=== PATIENT | female | born 1985 | race Hispanic/Latino ===

== ENCOUNTER → 2023-01-20 | Outpatient (CLI) | payer BC, OTHER | END | disposition home or self-care (01) | LOC: SHCH 14:40 | PROVIDERS: ATTEND Internal Medicine Cardiovascular Disease | DX: R00.2 Palpitations (principal); R00.0 Tachycardia, unspecified | CPT/HCPCS: 93306 ==

== ENCOUNTER → 2024-06-10 | Outpatient (CLI) | payer BC ==
[~2024-06-10] MED LIST: PREN1TAB80 PO
--- NOTE | 2024-06-10 16:53 | HMCIMG ---
US BREAST BILATERAL REASON: BREAST PAIN. COMPARISON: None TECHNIQUE: Outer breast ultrasound study was performed. FINDINGS: No evidence of cystic or hypoechoic mass is seen in either breast. There is right axillary lymph node measures 11 x 5 x 11 mm. There is left axillary lymph node measuring 14 x 6 x 11 mm. IMPRESSION: No evidence of cystic or hypoechoic mass is seen. CATEGORY 2: BENIGN FINDINGS Recommend monthly self breast exam as well as annual clinical examination.
== END | disposition home or self-care (01) ==
LOC: RAH 13:56
PROVIDERS: ATTEND Internal Medicine
DX: N64.4 Mastodynia (principal); R59.0 Localized enlarged lymph nodes